=== PATIENT | male | born 1950 | race Two or more races ===

== ENCOUNTER 2025-09-11 16:50 | Inpatient (IN) | payer MEDICARE ==
[~2025-09-11] VITALS: Ht 170.2 cm; Wt 81.6 kg
[~2025-09-11 16:50] MED LIST: LINE600T12 PO
[2025-09-11 18:31] LABS: PLATELET COUNT (AUTO) 246 K/uL (150-450); RED BLOOD CELL COUNT(AUTO) 2.52 MIL/uL (4.5-6.0); RED CELL DISTRIBUTION WIDTH 18.8 % (11.5-15.0); WHITE BLOOD COUNT (AUTO) 11.1 K/uL (4.3-11.0)
[2025-09-11 18:41] LABS: CALCIUM, SERUM 9.0 mg/dL (8.5-10.1); CREATININE 1.6 mg/dL (0.6-1.3); SERUM AMMONIA 21 umol/L (11-32); SODIUM SERUM 134 mmol/L (136-145); UREA NITROGEN, BLOOD 42 mg/dL (7-18)
[2025-09-11 18:46] LABS: ALCOHOL, BLOOD < 3 mg/dL (0-10); ASPARTATE AMINOTRANSFERASE 36 U/L (15-37); TOTAL PROTEIN, SERUM 5.9 g/dL (6.4-8.2)
[2025-09-11 18:49] LABS: INR 1.17 (0.91-1.10)
[2025-09-11 19:39] LABS: APPEARANCE,URINE CLEAR (CLEAR); BLOOD, URINE 2+ Ery/uL (NEGATIVE); LEUKOCYTE ESTERASE ,URINE NEGATIVE (NEGATIVE); NITRITE, URINE NEGATIVE (NEGATIVE); UGLUCOSE NEGATIVE (NEGATIVE)
[2025-09-11 19:45] LABS: AMPHETAMINE, URINE NEGATIVE (NEGATIVE); BARBITURATE, URINE NEGATIVE (NEGATIVE); BENZODIAZEPINE, URINE POSITIVE (NEGATIVE); CANNABINOID, URINE NEGATIVE (NEGATIVE); COCCAINE, URINE NEGATIVE (NEGATIVE)
[2025-09-11 19:46] LABS: OPIATE, URINE POSITIVE (NEGATIVE)
[2025-09-11 19:57] LABS: ADD URINE CULTURE NO; CALCIUM OXALATE CRYSTALS,UR Rare /HPF (None Seen); SQUAMOUS EPITHELIAL CELL,UR Rare /HPF (None Seen)
[2025-09-11 19:58] LABS: URINE AMORPHOUS URATE Few /HPF (None Seen)
[2025-09-11] MEDS: ENOXAPARIN SODIUM 40 MG/0.4 ML DISP.SYRIN SQ SCH (21:30)
[2025-09-11] MEDS ORDERED: ONDANSETRON HCL/PF 4 MG/2 ML VIAL IVP PRN (21:30)
[2025-09-11] MEDS ORDERED: MAG HYDROX/AL HYDROX/SIMETH 30 ML UDC PO PRN (21:30)
[2025-09-11] MEDS ORDERED: NALOXONE PREFILLED SYRINGE 2 MG/2 ML SYRINGE ONE (22:08)
[2025-09-11] MEDS: NALOXONE PREFILLED SYRINGE 2 MG/2 ML SYRINGE IV ONE (22:10)
[2025-09-11] MEDS ORDERED: AMMONIA NASAL INHALATION 1 EA PACK NAS ONE (22:16)
[2025-09-11] MEDS: ETOMIDATE 2 MG/ML VIAL IV ONE (22:39)
[2025-09-11] MEDS: ROCURONIUM BROMIDE 100 MG/10 ML VIAL IV ONE (22:40)
[2025-09-11] MEDS ORDERED: PROPOFOL 100 ML ONE (22:48)
[2025-09-11] MEDS: PROPOFOL 100 ML IV PRN (22:57)
[2025-09-11] MEDS ORDERED: IPRATROPIUM NEB FS 0.5 MG/2.5 ML AMPUL.NEB NEB PRN (23:00)
[2025-09-11] MEDS ORDERED: ALBUTEROL HALF STRENGTH 1.25 MG/3 ML VIAL.NEB NEB PRN (23:00)
[2025-09-11] MEDS ORDERED: HYDROCORTISONE SOD SUCCINATE 100 MG/2 ML VIAL ONE (23:00)
[2025-09-11] MEDS: IV NS 0.9% 1,000 ML BAG IV ONE (23:02)
[2025-09-11] MEDS: PROPOFOL 100 ML IV ONE (23:05)
[2025-09-11] MEDS ORDERED: FENTANYL CITRAT IV 2,500 MCG in IV NS 0.9% 200 ML IV PRN (23:30)
[2025-09-11] MEDS ORDERED: CEFEPIME 1 GM VIAL ONE (23:38)
[2025-09-11] MEDS: CEFEPIME 1 GM in IV D5W 50 ML IV ONE (23:43)
[2025-09-11 23:47] LABS: ABG BASE EXCESS -8.6 mmol/L (-2.0-3.0); ABG OXYGEN SATURATION 93.9 % (94.0-98.0); ABG PCO2 62.2 mmHg (35.0-48.0); ABG PH 7.136 (7.350-7.450); ABG PO2 91.1 mmHg (83.0-108.0); ABG TOTAL HEMOGLOBIN 9.3 G/dL (13.5-17.5); FLOW, BLOOD GAS 7.00 L/min (0.00-30.00); FRACTIONATED INSPIRED OXYGEN 44.0 %; SITE, ABG RIGHT BRACHIAL
[2025-09-11 23:49] LABS: ABG BASE EXCESS -7.4 mmol/L (-2.0-3.0); ABG OXYGEN SATURATION 99.0 % (94.0-98.0); ABG PCO2 42.4 mmHg (35.0-48.0); ABG PH 7.269 (7.350-7.450); ABG PO2 169.6 mmHg (83.0-108.0); ABG TOTAL HEMOGLOBIN 8.1 G/dL (13.5-17.5); FRACTIONATED INSPIRED OXYGEN 100.0 %; PEEP,BG 0 cm H2O; SET RATE, BG 20.0; SITE, ABG RIGHT BRACHIAL; VT, ABG 500 mL
[2025-09-12] VITALS (82 sets, daily range): BP systolic 78–123; BP diastolic 48–70; TEMP 97.5–97.9; O2SAT 96–100
[2025-09-12] MEDS: IV NS 0.9% 1,000 ML IV PRN ×2 (02:42→15:42)
[2025-09-12] MEDS: NOREPINEPHRINE 8 MG in IV NS 0.9% 242 ML IV PRN (03:52)
[2025-09-12] MEDS: NOREPINEPHRINE 8MG/250ML RTU 250 ML IV ONE (03:57)
[2025-09-12 04:50] LABS: PLATELET COUNT (AUTO) 199 K/uL (150-450); RED BLOOD CELL COUNT(AUTO) 2.49 MIL/uL (4.5-6.0); RED CELL DISTRIBUTION WIDTH 19.2 % (11.5-15.0); WHITE BLOOD COUNT (AUTO) 9.4 K/uL (4.3-11.0)
[2025-09-12 05:03] LABS: CALCIUM, SERUM 8.6 mg/dL (8.5-10.1); CREATININE 1.5 mg/dL (0.6-1.3); PHOSPHORUS 4.6 mg/dL (2.5-4.9); SODIUM SERUM 139.0 mmol/L (136-145); UREA NITROGEN, BLOOD 40.0 mg/dL (7-18)
[2025-09-12] MEDS ORDERED: ROCURONIUM BROMIDE 50 MG/5 ML IV ONE (08:47)
[2025-09-12] MEDS ORDERED: ETOMIDATE 2 MG/ML VIAL IV ONE (08:47)
[2025-09-12 08:49] LABS: ABG PCO2 30.5 mmHg (35.0-48.0); ABG PH 7.322 (7.350-7.450); ABG PO2 116.0 mmHg (83.0-108.0); SITE, ABG RIGHT RADIAL
[2025-09-12 08:50] LABS: ABG BASE EXCESS -9.6 mmol/L (-2.0-3.0); ABG OXYGEN SATURATION 97.9 % (94.0-98.0); ABG TOTAL HEMOGLOBIN 9.6 G/dL (13.5-17.5); FRACTIONATED INSPIRED OXYGEN 40.0 %; PEEP,BG 0 cm H2O; SET RATE, BG 20.0; VT, ABG 500 mL
[2025-09-12] MEDS: HYDROCORTISONE SOD SUCCINATE 100 MG/2 ML VIAL IV SCH (10:39)
[2025-09-12 14:43] LABS: LACTIC ACID 0.7 mmol/L (0.4-2.0)
[2025-09-12] MEDS: PROPOFOL 100 ML IV PRN (21:08)
[2025-09-13] VITALS (59 sets, daily range): BP systolic 85–123; BP diastolic 50–86; TEMP 97.6–98; O2SAT 93–100
[2025-09-13] MEDS: HYDROCODONE/APAP 5/325MG TABLET PO PRN (00:49)
[2025-09-13 04:47] LABS: PLATELET COUNT (AUTO) 328 K/uL (150-450); RED BLOOD CELL COUNT(AUTO) 2.49 MIL/uL (4.5-6.0); RED CELL DISTRIBUTION WIDTH 18.5 % (11.5-15.0); WHITE BLOOD COUNT (AUTO) 11.6 K/uL (4.3-11.0)
[2025-09-13 04:58] LABS: ASPARTATE AMINOTRANSFERASE 22.0 U/L (15-37); CALCIUM, SERUM 8.3 mg/dL (8.5-10.1); CREATININE 1.3 mg/dL (0.6-1.3); PHOSPHORUS 3.7 mg/dL (2.5-4.9); SODIUM SERUM 140.0 mmol/L (136-145); TOTAL PROTEIN, SERUM 5.4 g/dL (6.4-8.2); UREA NITROGEN, BLOOD 39.0 mg/dL (7-18)
[2025-09-13 05:01] LABS: CREATINE KINASE, TOTAL 89.0 U/L (39-308)
[2025-09-13 09:55] LABS: ABG BASE EXCESS -7.2 mmol/L (-2.0-3.0); ABG OXYGEN SATURATION 98.8 % (94.0-98.0); ABG PCO2 25.7 mmHg (35.0-48.0); ABG PH 7.419 (7.350-7.450); ABG PO2 152.1 mmHg (83.0-108.0); ABG TOTAL HEMOGLOBIN 8.5 G/dL (13.5-17.5); FRACTIONATED INSPIRED OXYGEN 40.0 %; PEEP,BG 5 cm H2O; SET RATE, BG 4.0; SITE, ABG RIGHT RADIAL; VT, ABG 500 mL
[2025-09-13] MEDS ORDERED: NEBI5TAB8 PO (10:20)
[2025-09-13] MEDS ORDERED: CARV25TA2 PO (10:20)
[2025-09-13] MEDS ORDERED: [UNRECOGNIZED DRUG - OTHER] PO (10:20)
[2025-09-13] MEDS ORDERED: TAMS-12 PO (10:20)
[2025-09-13] MEDS ORDERED: QUET200T PO (10:20)
[2025-09-13] MEDS ORDERED: APIX5TAB PO (10:20)
[2025-09-13] MEDS ORDERED: PANT40TA49 PO (10:20)
[2025-09-13] MEDS ORDERED: FAMO40TA7 PO (10:20)
[2025-09-13] MEDS ORDERED: Mounjaro SQ (10:20)
[2025-09-13] MEDS ORDERED: QUET50TA PO (10:20)
[2025-09-13] MEDS ORDERED: METH500T6 PO (10:20)
[2025-09-13] MEDS ORDERED: HYDR-3980 PO (10:20)
[2025-09-13] MEDS ORDERED: ALPR1TAB7 PO ×2 (10:20)
[2025-09-13] MEDS ORDERED: LOSA50TA39 PO (10:20)
[2025-09-13] MEDS ORDERED: VENL37.581 PO (10:20)
[2025-09-13] MEDS ORDERED: RIME75TA PO (10:20)
[2025-09-13] MEDS ORDERED: KERENDIA PO (10:20)
[2025-09-13] MEDS ORDERED: TROS20TA3 PO (10:20)
[2025-09-13] MEDS ORDERED: DIAZ10TA4 PO (10:20)
[2025-09-13] MEDS ORDERED: GABA300C PO (10:20)
[2025-09-13] MEDS ORDERED: DULO60CA64 PO (10:20)
[2025-09-13] MEDS ORDERED: ROSU20TA32 PO (10:20)
[2025-09-13] MEDS ORDERED: MUPI1OIN5 TP (10:20)
[2025-09-14] VITALS (26 sets, daily range): BP systolic 74–131; BP diastolic 57–75; TEMP 97.4–98.1; O2SAT 96–100
[2025-09-14 04:45] LABS: PLATELET COUNT (AUTO) 229 K/uL (150-450); RED BLOOD CELL COUNT(AUTO) 2.41 MIL/uL (4.5-6.0); RED CELL DISTRIBUTION WIDTH 19.0 % (11.5-15.0); WHITE BLOOD COUNT (AUTO) 7.7 K/uL (4.3-11.0)
[2025-09-14 05:03] LABS: CALCIUM, SERUM 8.0 mg/dL (8.5-10.1); CREATININE 1.1 mg/dL (0.6-1.3); PHOSPHORUS 3.1 mg/dL (2.5-4.9); SODIUM SERUM 142.0 mmol/L (136-145); UREA NITROGEN, BLOOD 34.0 mg/dL (7-18)
[2025-09-14 07:08] LABS: PTH, INTACT 20 pg/mL (15-65)
[2025-09-14 09:02] LABS: IRON, SERUM 32 ug/dl (50-175)
[2025-09-14] MEDS: ACETAMINOPHEN 325 MG TABLET PO PRN (14:53)
[2025-09-14] MEDS: GLUCERNA SHAKE 237 ML CAN PO SCH (16:30)
[2025-09-15] VITALS (8 sets, daily range): BP systolic 98–110; BP diastolic 59–71; TEMP 97.3–98.6; O2SAT 95–99
[2025-09-15 06:13] LABS: ASPARTATE AMINOTRANSFERASE 26.0 U/L (15-37); CALCIUM, SERUM 8.1 mg/dL (8.5-10.1); CREATININE 1.1 mg/dL (0.6-1.3); PHOSPHORUS 1.8 mg/dL (2.5-4.9); SODIUM SERUM 145.0 mmol/L (136-145); TOTAL PROTEIN, SERUM 4.9 g/dL (6.4-8.2); UREA NITROGEN, BLOOD 29.0 mg/dL (7-18)
[2025-09-15 06:17] LABS: PLATELET COUNT (AUTO) 234 K/uL (150-450); RED BLOOD CELL COUNT(AUTO) 2.46 MIL/uL (4.5-6.0); RED CELL DISTRIBUTION WIDTH 18.8 % (11.5-15.0); WHITE BLOOD COUNT (AUTO) 6.7 K/uL (4.3-11.0)
[2025-09-15] MEDS: NEUTRA PHOS 1 POWD.PACKET PO ONE (16:26)
[2025-09-15] MEDS: K PHOS NEUTRAL 250 MG TABLET PO ONE (16:26)
[2025-09-15] MEDS: oxyCODONE IR immediate release 5 MG TABLET PO PRN (21:01)
[2025-09-16] VITALS (9 sets, daily range): BP systolic 115–122; BP diastolic 55–79; TEMP 98.1–208.8; O2SAT 97–99
[2025-09-16 06:08] LABS: *SPE A/G RATIO 0.9 (0.7-1.7); *SPE ALBUMIN 2.3 g/dL (2.9-4.4); *SPE ALPHA-1-GLOBULIN 0.3 g/dL (0.0-0.4); *SPE ALPHA-2-GLOBULIN 0.7 g/dL (0.4-1.0); *SPE BETA GLOBULIN 0.8 g/dL (0.7-1.3); *SPE GLOBULIN, TOTAL 2.5 g/dL (2.2-3.9); *SPE M-SPIKE Not Observed g/dL (Not Observed); *SPE PROTEIN TOTAL 4.8 g/dL (6.0-8.5); *SPEGAMMA GLOBULIN 0.7 g/dL (0.4-1.8)
[2025-09-16 06:25] LABS: CALCIUM, SERUM 8.2 mg/dL (8.5-10.1); CREATININE 1.0 mg/dL (0.6-1.3); PHOSPHORUS 1.9 mg/dL (2.5-4.9); SODIUM SERUM 144.0 mmol/L (136-145); UREA NITROGEN, BLOOD 25.0 mg/dL (7-18)
[2025-09-16 16:02] LABS: PLATELET COUNT (AUTO) 226 K/uL (150-450); RED BLOOD CELL COUNT(AUTO) 2.67 MIL/uL (4.5-6.0); RED CELL DISTRIBUTION WIDTH 19.8 % (11.5-15.0); WHITE BLOOD COUNT (AUTO) 5.2 K/uL (4.3-11.0)
[2025-09-16 16:08] LABS: CALCIUM, SERUM 8.1 mg/dL (8.5-10.1); CREATININE 0.9 mg/dL (0.6-1.3); SODIUM SERUM 142.0 mmol/L (136-145); UREA NITROGEN, BLOOD 21.0 mg/dL (7-18)
[2025-09-16] MEDS: GABAPENTIN 300 MG CAPSULE PO SCH (17:23)
[2025-09-16] MEDS: METHOCARBAMOL (500MG) 500 MG TABLET PO SCH (17:24)
[2025-09-16] MEDS: PANTOPRAZOLE 40 MG TABLET.DR PO SCH (17:24)
[2025-09-16] MEDS: K PHOS NEUTRAL 250 MG TABLET PO ONE (17:24)
[2025-09-16] MEDS: APIXABAN 5 MG TABLET PO SCH (17:27)
[2025-09-16] MEDS: LINEZOLID 600 MG TABLET PO SCH (21:11)
[2025-09-16] MEDS: CARVEDILOL 12.5 MG TABLET PO SCH (21:11)
[2025-09-16] MEDS: ALPRAZOLAM 1 MG TABLET PO SCH (21:11)
[2025-09-16] MEDS ORDERED: Medication Not On Formulary EA (Trospium Chloride 20 MG) PO SCH (22:00)
[2025-09-17] VITALS: BP_SYST 118; BP_SYST 119; BP_DIAS 72; BP_DIAS 76; TEMP 98.1; O2SAT 99
[2025-09-17 04:00] VITALS: BP 119/72; TEMP 98.1; O2SAT 99
[2025-09-17] MEDS: TAMSULOSIN 0.4 MG CAP.SR.24H PO SCH (08:18)
[2025-09-17] MEDS: ATORVASTATIN 40 MG TABLET PO SCH (08:18)
[2025-09-17] MEDS: LOSARTAN POTASSIUM 50 MG TABLET PO SCH (08:19)
[2025-09-17 09:00] VITALS: BP_SYST 131; TEMP 97.5
[2025-09-17] MEDS ORDERED: VENLAFAXINE XR 37.5 MG CAP.SR.24H PO SCH (09:00)
[2025-09-17] MEDS ORDERED: DULOXETINE HCL 30 MG CAPSULE.DR PO SCH (09:00)
[2025-09-17 12:00] VITALS: BP_SYST 107; BP_SYST 138; BP_DIAS 64; BP_DIAS 76; TEMP 97.5; TEMP 97.8; O2SAT 93; O2SAT 95
[2025-09-17] MEDS: FUROSEMIDE 20 MG/2 ML VIAL IV ONE (12:37)
[2025-09-17 16:00] VITALS: BP 126/75; TEMP 97.5; O2SAT 99
[2025-09-17 20:00] VITALS: BP_SYST 109; BP_SYST 128; BP_DIAS 65; BP_DIAS 72; TEMP 98.2; O2SAT 97
[2025-09-17 20:51] LABS: CALCIUM, SERUM 8.0 mg/dL (8.5-10.1); CREATININE 1.0 mg/dL (0.6-1.3); SODIUM SERUM 144.0 mmol/L (136-145); UREA NITROGEN, BLOOD 16.0 mg/dL (7-18)
[2025-09-17 21:02] LABS: PLATELET COUNT (AUTO) 249 K/uL (150-450); RED BLOOD CELL COUNT(AUTO) 3.32 MIL/uL (4.5-6.0); RED CELL DISTRIBUTION WIDTH 19.8 % (11.5-15.0); WHITE BLOOD COUNT (AUTO) 6.2 K/uL (4.3-11.0)
[2025-09-18] VITALS (7 sets, daily range): BP systolic 99–135; BP diastolic 62–74; TEMP 97.5–98.2; O2SAT 95–99
[2025-09-18] MEDS: POTASSIUM CHLORIDE 20 MEQ TAB.PRT.SR PO SCH (09:02)
[2025-09-18] MEDS: FUROSEMIDE 40 MG/4 ML VIAL IV SCH (09:10)
[2025-09-18] MEDS: HYDROMORPHONE 1 MG/1 ML DISP.SYRIN IV PRN (15:17)
[2025-09-18 17:22] LABS: CALCIUM, SERUM 8.0 mg/dL (8.5-10.1); CREATININE 0.9 mg/dL (0.6-1.3); SODIUM SERUM 145.0 mmol/L (136-145); UREA NITROGEN, BLOOD 16.0 mg/dL (7-18)
[2025-09-18] MEDS: oxyCODONE IR immediate release 5 MG TABLET PO PRN (18:24)
== END 2025-09-18 20:20 | disposition short-term general hospital (02) | DRG 208 ==
LOC: ER 17:05 → MED 20:57 → ICU 23:30 → MED 09-14 18:27 → TELE 09-14 18:43
PROVIDERS: ADMIT Nurse Practitioner Acute Care; ATTEND Nurse Practitioner Acute Care
PROC: 5A1945Z Respiratory Ventilation, 24-96 Consecutive Hours (ICD-10-PCS; principal; 2025-09-11)
PROC: 0BH17EZ Insertion of Endotracheal Airway into Trachea, Via Natural or Artificial Opening (ICD-10-PCS; 2025-09-11)
DX: J96.02 Acute respiratory failure with hypercapnia (principal); N17.0 Acute kidney failure with tubular necrosis; G92.8 Other toxic encephalopathy; E44.0 Moderate protein-calorie malnutrition; E87.0 Hyperosmolality and hypernatremia; E87.20 Acidosis, unspecified; J81.1 Chronic pulmonary edema; D68.59 Other primary thrombophilia; D63.8 Anemia in other chronic diseases classified elsewhere; Z79.01 Long term (current) use of anticoagulants; E11.9 Type 2 diabetes mellitus without complications; I12.9 Hypertensive chronic kidney disease with stage 1 through stage 4 chronic kidney disease, or unspecified chronic kidney disease; N18.9 Chronic kidney disease, unspecified; D64.9 Anemia, unspecified; E88.09 Other disorders of plasma-protein metabolism, not elsewhere classified; I25.10 Atherosclerotic heart disease of native coronary artery without angina pectoris; R29.6 Repeated falls; T42.75XA Adverse effect of unspecified antiepileptic and sedative-hypnotic drugs, initial encounter; Y92.9 Unspecified place or not applicable; Z87.81 Personal history of (healed) traumatic fracture; Z98.890 Other specified postprocedural states; Z88.0 Allergy status to penicillin; F12.90 Cannabis use, unspecified, uncomplicated; F15.90 Other stimulant use, unspecified, uncomplicated; Z95.0 Presence of cardiac pacemaker; Z87.891 Personal history of nicotine dependence; Z79.891 Long term (current) use of opiate analgesic; K44.9 Diaphragmatic hernia without obstruction or gangrene; Z79.51 Long term (current) use of inhaled steroids; F41.9 Anxiety disorder, unspecified; G89.4 Chronic pain syndrome; E86.0 Dehydration; Z74.09 Other reduced mobility; Z79.899 Other long term (current) drug therapy
CPT/HCPCS: 31720; 36415; 36600; 70450-TC; 71045-TC; 73590-TC; 76770-TC; 80048-TC; 80053-TC; 80076-TC; 81001; 82140-TC; 82533; 82550-TC; 82728-TC; 82803-TC; 82962-TC; 83540-TC; 83605-TC; 83735-TC; 83970; 84100-TC; 84155; 84165; 84443-TC; 84484-TC; 85025-TC; 85730-TC; 87040-TC; 87081-TC; 92526; 92611; 93307-TC; 94002-TC; 94003-TC; 94799-TC; 99082-TC; A4223; A6213; A6254; A6403; G0378; G0480; J0692; J1171; J1650; J1720; J1938; J2312; J2919; J3490; J7030; J7050; J7060